=== PATIENT | female | born 1985 | race Caucasian/White ===

== ENCOUNTER 2017-03-08 08:48 | Inpatient (IN) ==
--- NOTE | 2017-03-08 09:41 | OB/GYN History & Physical ---
Date of Encounter: 03/08/17 Time of Encounter: 09:35 Assessment and Plan (1) 36 weeks gestation of Current visit: Yes Status: Acute Admit for delivery (2) Spontaneous rupture of membranes Current visit: Yes Status: Acute + Nitrazine, grossly ruptured on exam clear fluid GBS status unknown will treat per protocol. History of Present Illness Chief complaint: Spontaneous rupture of membranes HPI: Ms. Gómez is a 32 year old female at 36w6d presents to labor and delivery with c/o rupture of membranes at 2330 on 03/07/2017. Patient reports irregular contractions and bloody show. Patient had GBS culture collected at last appointment however will not be resulted out until tomorrow. Patient reports allergy to PCN as a baby and is going to contact mother for reaction. Blood type A+, Rubella: Immune, Hep B: nonreactive. Past Med Surg Social Fam HX - Past Medical History Source: patient Medical history: no medical history Psychiatric history: no psych history - Past Surgical History Surgical History: other (T&A, [place] teeth and nasal surgery) - Social History Alcohol use: none Drug use: none Current living situation: Home - Independent Activity Level: Independent ambulation Recent Out of Country Travel Within the Last 8 Weeks: No Exposure or Possible Exposure to Illness During Travel: No Obstetrical History - Pregnancies : 3 Para: 2 Term: 1 : 1 Ab's: 0 Livin - History/Complications History/Complications: History of PIH with prior pregnancies Review of System OB - Constitutional Constitutional ROS IM: no chills, no fever(s), no headache(s) - Cardiovascular Cardiovascular: rapid heart rate, no chest pain, no dyspnea, no edema, no palpitations, no syncope - Respiratory Respiratory: no cough - Gastrointestinal Gastrointestinal: no abdominal pain, no diarrhea, no heartburn, no nausea, no vomiting - Genitourinary Genitourinary: no abnormal vaginal bleeding, no difficulty urinating, no dysuria , no flank pain, no urinary frequency, no urinary urgency, no vaginal odor Exam - Constitutional Constitutional: well developed, well nourished, no acute distress, average body habitus - HEENT HEENT: Normocephaly, Mucus Membranes Moist - Neck Neck exam: normal inspection, supple - Lungs Respiratory exam: CTAB - Cardiovascular Cardiovascular exam: RRR, +S1, +S2 - Abdomen Abdomen: Present: bowel sounds normal, gravid, non tender - Extremities Extremities exam: full ROM, normal capillary refill, normal inspection Deep Tendon Reflex Grade: 2+ Normal - Cervix Dilation: 3 (per RN) Effacement: 80 Station: -1 - Uterus Uterus exam: Present: normal size, normal contour - Anus/Rectum Anus/Rectum: Present: normal perianal skin - Comments Comments: FHR 135 bpm moderate variability +15x15 accels no decels noted. Contractions irregular. Cat. 1 tracing. Results All other labs normal.
[2017-03-08] MEDS ORDERED: Ondansetron 4 MG/2 ML VIAL IVP PRN ×2 (09:50→18:34)
[2017-03-08] MEDS ORDERED: Famotidine 20 MG/2 ML VIAL IVP PRN (09:50)
[2017-03-08] MEDS ORDERED: Naloxone 0.4 MG/ML INJ IVP PRN (09:50)
[2017-03-08] MEDS ORDERED: Ringers Solution, Lactated 1,000 ML IVC SCH (10:00)
[2017-03-08 10:01] LABS: Basophils % 0.3 %; Eosinophils % 0.1 %; Hematocrit 35.3 % (35.3-44.9); Hemoglobin 11.6 g/dL (11.5-15.4); Immature Granulocytes % 1.5 % (0-4); Lymphocytes # 1.4 K/mcL (0.6-4.6); Lymphocytes % 9.4 %; Mean Corpuscular HGB Conc 32.9 g/dL (31.6-35.5); Mean Corpuscular Hemoglobin 27.8 pg (28.0-33.3); Mean Corpuscular Volume 84.7 fL (83.0-100.0); Mean Platelet Volume 10.6 fL (9.4-12.4); Monocytes # 0.9 K/mcL (0.0-1.3); Neutrophils # 11.9 K/mcL (1.6-8.9); Platelet Count 301 K/mcL (140-400); Red Blood Count 4.17 M/mcL (3.82-4.97); Segmented Neutrophils % 82.7 %
[2017-03-08 10:18] LABS: Alanine Aminotransferase 16 Units/L (0-55); Aspartate Amino Transferase 18 Units/L (5-34); BUN/Creatinine Ratio 11 (6-26); Blood Urea Nitrogen 7 mg/dL (7-20); Lactate Dehydrogenase 223 Units/L (159-327); Uric Acid 3.6 mg/dL (2.6-6.0); eGFR For African Americans > 60 (> 60); eGFR For Non-African Americans > 60 (> 60)
[2017-03-08] MEDS ORDERED: Clindamycin 900 MG/50 ML 900 MG/50 ML IV.SOLN IVPB SCH ×2 (11:30→16:00)
[2017-03-08] MEDS ORDERED: *HR* Nalbuphine 20 MG/ML AMPUL IVP PRN (12:25)
--- NOTE | 2017-03-08 12:28 | OB Labor Progress Note ---
Date of Encounter: 03/08/17 Time of Encounter: 12:26 Labor Progress Note - Subjective Subjective: Patient reports contractions are getting stronger. Patient reports she is ready for Nubain at this time. - Cervix Cervix: 5.5/80/-1 - Heart Tones Heart Tones: 130 bpm moderate variability +15x15 accels no decels noted. - [place]: 3-4 min apart - Interventions Interventions: SVE - Plan Plan: Nubain and Epidural for pain management when desired Continue labor management-
[2017-03-08] MEDS ORDERED: *HR* Nalbuphine 20 MG/ML AMPUL ONE (12:30)
[2017-03-08] MEDS ORDERED: Epidural Premix (fent/bupiv) 110 ML EP ONE (13:15)
[2017-03-08] MEDS ORDERED: *HR* FentaNYL (PF) 100 MCG/2 ML VIAL ONE (13:15)
[2017-03-08] MEDS ORDERED: Bupivacaine-MPF 0.25% 10 ML VIAL ONE (13:15)
--- NOTE | 2017-03-08 13:51 | Anesthesia Evaluation PreOp ---
Date of Encounter: 03/08/17 Time of Encounter: 13:49 - Past History Planned Operation: SAPNA Cardiac History: Denies any Significant Hx Pulmonary History: Denies Any Significant HX PREP PERSON History: Denies Any Significant HX Other Medical History: Denies Any Significant HX Anesthesia History: No Prior Anesthetic Complications (previous SAPNA x 2; denies personal and family h/o complications w/ GA or NA) : Yes Test: Positive Alcohol Use: none Drug use: none Medications and Allergies Pepcid 1 / PO Q12-24H PRN 03/08/17 [History] Pnv95/Ferrous Fumarate/FA [ Vitamin Tablet] 1 each PO DAILY 03/08/17 [ History] Allergies Penicillins Allergy (Verified 03/08/17 09:52) Anaphylaxis - Meds/Allergy Pre-op Review Medications Reviewed: Yes Allergies Reviewed: Yes Beta Blockers on Current Med List: No Anesthesia Results - Labs 03/08/17 09:52 03/08/17 09:52 Anesthesia Exam O2 Sat Height 1.73 m Height 1.73 m Weight 69 kg Weight 69.5 kg O2 Sat by Pulse Oximetry 99 Vital Signs Temp Pulse Resp BP Pulse Ox 98.1 F 96 16 131/87 99 03/08/17 10:12 03/08/17 10:12 03/08/17 10:12 03/08/17 10:12 03/08/17 10:12 NPO (# of Hours): solids > 7 hours Pain Scale: 6 Pain Scale Used: Numeric (1 - 10) - HEENT Pupil (Motor): Pupils equal Mallampati: II Teeth: Normal Oral Opening: Greater than 3 - PREP PERSON LOC: Oriented PREP PERSON Motor: Normal RUE, Normal LUE, Normal RLE, Normal LLE, Normal Face PREP PERSON Sensory: Normal: RUE, LUE, RLE, LLE, Face - Cardiac Rhythm: Regular Murmur: None - Pulmonary Breath Sounds: bilateral Clear Respiratory Effort: Symmetrical Anesthesia Assess/Plan ASA Score: 2 Modified [place] Scale for Level of Consciousness: Anixous, agitated or restless Anesthetic Plan: Regional Autologous Blood: No Monitoring Plan: Standard Monitors Recovery Plan: Other
[2017-03-08] MEDS ORDERED: *HR* FentaNYL (PF) 100 MCG/2 ML VIAL EP ONE (13:53)
[2017-03-08] MEDS ORDERED: Bupivacaine-MPF 0.25% 10 ML VIAL EP ONE (13:53)
--- NOTE | 2017-03-08 13:53 | Anesthesia Procedures ---
Date of Encounter: 03/08/17 Time of Encounter: 13:19 Procedures: Anesthesia - Epidural/Spinal Patient ID/Chart reviewed: Yes Patient examined: Yes OB Eval: Gestational age: 36 weeks 6 days OB Eval: : 3 OB Eval: Hx Para: 2 OB Eval: Dilated at (cm): 7 OB Eval: Contractions: Non-stressed pattern Consent Obtained: Yes Supplemental Oxygen: None/Room Air Site Prep: Aseptic Technique, Sterile prep and drape, Povidone-Iodine 1% Patient position: upright Local Anesthetic: Lidocaine 1% Amount of Local Anesthetic used: 3 Touhy Needle Gauge: 18 Touhy Needle Depth (cm): 4 Catheter Depth at Skin (cm): 9 Test Dose (1.5% Lido + Epi): Volume given (mls): 6 (given in 2 equally divided doses over a period of 5 min) Test Dose Result: Negative Loading Dose Administered: Thru Catheter Infusion Med: 0.125% Bupivacaine w/ 2 mcg/ml Fentanyl Infusion Rate (mls/hr): [address]: Tegaderm, Tape Interspace Used: L3-L4 Loss of Resistance (EMILY): Yes Blood: No CSF: No Paresthesia: No
[2017-03-08] MEDS ORDERED: Epidural Premix (fent/bupiv) 110 ML EP SCH (14:00)
[2017-03-08] MEDS ORDERED: Oxytocin 20 units/ LR 1000 mL 20 UNIT/1,000 ML BAG IVC ONE (15:18)
--- NOTE | 2017-03-08 15:57 | OB/GYN Procedure Note ---
Delivery - Delivery Date: 03/08/17 Provider: Bianca Fields Intrapartum events: none Delivery induction: none Delivery monitor: external FHT, external uterine Anesthesia: epidural Estimated Blood Loss: 200 - Infant (s) Infant A Delivery Date: 03/08/17 Infant Delivery Time: 15:15 Presentation: vertex Position: TORREY Route of delivery: Gender: Male Viability: Viable Pounds: 6 Ounces: 7 Weight Gram: 2.925 kg at 1 minute: 8 at 5 mins: 9 Shoulder Dystocia: not encountered Placenta: spontaneous Cord: 3 umbilical vessels - Repair Episiotomy: none Laceration Description: None - Complications Delivery complications: none - Disposition Mom disposition: stable in LDR Christoval disposition: stable in LDR - Comments Comments: Patient progressed to complete dilatation and spontaneous vaginal delivery of viable male infant. scores were 8 and 9 at 1 and 5 minutes respectively, and the weighed 6 lbs. 7 oz. Placenta delivered spontaneously and appeared to be intact. No lacerations were noted, no episiotomy was performed. All sponge needle and is counts reported as correct. Blood loss 200 mL no shoulder dystocia was encountered, no nuchal cord was present.
[2017-03-08] MEDS ORDERED: Ibuprofen 600 MG TABLET PO PRN (17:09)
[2017-03-08] MEDS ORDERED: Acetaminophen 325 MG TABLET PO PRN (17:09)
[2017-03-08] MEDS ORDERED: Oxytocin 20 units/ LR 1000 mL 20 UNIT/1,000 ML BAG IVC SCH (17:09)
[2017-03-09 06:30] LABS: Basophils % 0.3 %; Eosinophils # 0.1 K/mcL (0.0-0.6); Eosinophils % 0.6 %; Hematocrit 33.6 % (35.3-44.9); Hemoglobin 10.8 g/dL (11.5-15.4); Immature Granulocytes % 1.9 % (0-4); Immature Platelets 4.7 % (1.1-6.1); Lymphocytes # 1.8 K/mcL (0.6-4.6); Lymphocytes % 13.3 %; Mean Corpuscular HGB Conc 32.1 g/dL (31.6-35.5); Mean Corpuscular Hemoglobin 27.5 pg (28.0-33.3); Mean Corpuscular Volume 85.5 fL (83.0-100.0); Mean Platelet Volume 10.6 fL (9.4-12.4); Monocytes % 7.1 %; Neutrophils # 10.3 K/mcL (1.6-8.9); Platelet Count 278 K/mcL (140-400); Red Blood Count 3.93 M/mcL (3.82-4.97); Segmented Neutrophils % 76.8 %
[2017-03-09] MEDS ORDERED: *HR* FentaNYL (PF) 100 MCG/2 ML VIAL ONE (07:42)
[2017-03-09] MEDS ORDERED: *HR* Propofol 200 MG/20 ML VIAL IVP ONE (07:42)
[2017-03-09] MEDS ORDERED: *HR* Midazolam HCl 2 MG/2 ML VIAL ONE (07:42)
[2017-03-09] MEDS ORDERED: Dexamethasone 4 MG/ML VIAL ONE (07:43)
[2017-03-09] MEDS ORDERED: Ondansetron 4 MG/2 ML VIAL ONE (07:43)
[2017-03-09] MEDS ORDERED: Lidocaine -MPF 2% 5 ML VIAL ONE (07:43)
[2017-03-09] MEDS ORDERED: *HR* Succinylcholine 200 MG/10 ML VIAL IVP ONE (07:46)
[2017-03-09] MEDS ORDERED: Ringers Solution, Lactated 1,000 ML ONE (07:58)
--- NOTE | 2017-03-09 08:01 | OB/GYN Progress Note ---
Date of Encounter: 03/09/17 Time of Encounter: 07:40 - Assessment and Plan (1) Normal vaginal delivery Current Visit: Yes Status: Acute (2) Encounter for sterilization Current Visit: Yes Status: Acute Risks, benefits and alternatives discussed with the patient at length and informed consent obtained. Anesthesia at bedside to consent. Subjective - Subjective Principal diagnosis: s/p vaginal delivery yesterday.Desire permanent sterilization today Patient reports: appetite normal, pain well controlled, ambulating normally : doing well Objective - Latest Vital Signs Latest vital signs: Vital Signs Temp Pulse Resp BP Pulse Ox 03/09/17 03:48 98.0 F 73 16 117/74 98 03/08/17 19:33 98.0 F 79 16 130/82 98 03/08/17 18:30 98 F 76 16 120/87 98 03/08/17 17:30 98.1 F 70 14 130/84 98 03/08/17 17:15 98.3 F 76 16 135/90 98 03/08/17 17:00 98.5 F 85 16 136/79 99 03/08/17 10:12 98.1 F 96 16 131/87 99 Intake and Output 03/08/17 03/08/17 03/09/17 15:59 23:59 07:59 Intake Total 600 / 600 0 / 0 Output Total 600 / 600 1600 / 1600 Balance 0 / 0 -1600 / -1600 Intake: Oral 600 / 600 0 / 0 Output: Urine 600 / 600 1600 / 1600 Other: # Voids 1 Weight 69 kg 67.2 kg 65.4 kg Patient Weight 03/09/17 23:59 Weight 65.4 kg - Exam Lungs: bilateral: normal Chest: Normal S1, Normal S2 Extremities: Present: normal Abdomen: Present: normal appearance, soft Uterus: Present: normal, firm. Absent: tenderness Uterus Position: 1 Finger Below Umbilicus - Labs Labs: Laboratory Results - last 24 hr 03/08/17 03/08/17 03/09/17 09:52 09:52 06:00 WBC 14.4 H 13.4 H RBC 4.17 3.93 Hgb 11.6 10.8 L Hct 35.3 33.6 L MCV 84.7 85.5 MCH 27.8 L 27.5 L MCHC 32.9 32.1 RDW 13.0 13.0 Plt Count 301 278 MPV 10.6 10.6 Immature Gran % 1.5 1.9 Seg Neutrophils % 82.7 76.8 Lymphocytes % 9.4 13.3 Monocytes % 6.0 7.1 Eosinophils % 0.1 0.6 Basophils % 0.3 0.3 Neutrophils # 11.9 H 10.3 H Lymphocytes # 1.4 1.8 Monocytes # 0.9 1.0 Eosinophils # 0.0 0.1 Basophils # 0.0 0.0 Immature Plt Fraction 4.7 BUN 7 Creatinine 0.63 Est GFR ( Amer) > 60 Est GFR (Non-Af Amer) > 60 BUN/Creatinine Ratio 11 Uric Acid 3.6 AST 18 ALT 16 Lactate Dehydrogenase 223
[2017-03-09] MEDS ORDERED: *HR* Promethazine 25 MG/ML VIAL IVP PRN (08:07)
[2017-03-09] MEDS ORDERED: *HR* HYDROmorphone (PF) 1 MG/ML SYRINGE IVP PRN (08:07)
[2017-03-09] MEDS ORDERED: *HR* Labetalol 100 MG/20 ML MDV IVP PRN (08:07)
--- NOTE | 2017-03-09 08:07 | Anesthesia Evaluation PreOp ---
Date of Encounter: 03/09/17 Time of Encounter: 07:40 - Past History Planned Operation: BPS Cardiac History: Denies any Significant Hx Pulmonary History: Denies Any Significant HX CHEMICAL DEPENDENCY COUNSELOR History: Denies Any Significant HX Other Medical History: Denies Any Significant HX Anesthesia History: No Prior Anesthetic Complications, Past Anesthesia (T&A, wisdom teeth, nasal surgery) Alcohol Use: none Drug use: none Medications and Allergies Pepcid 1 / PO Q12-24H PRN 03/08/17 [History] Pnv95/Ferrous Fumarate/FA [ Vitamin Tablet] 1 each PO DAILY 03/08/17 [ History] Allergies Penicillins Allergy (Verified 03/08/17 09:52) Anaphylaxis - Meds/Allergy Pre-op Review Medications Reviewed: Yes Allergies Reviewed: Yes Beta Blockers on Current Med List: No Anesthesia Results - Labs 03/09/17 06:00 03/08/17 09:52 Anesthesia Exam Vital Signs Temp Pulse Resp BP Pulse Ox 03/09/17 03:48 98.0 F 73 16 117/74 98 03/08/17 19:33 98.0 F 79 16 130/82 98 03/08/17 18:30 98 F 76 16 120/87 98 03/08/17 17:30 98.1 F 70 14 130/84 98 03/08/17 17:15 98.3 F 76 16 135/90 98 03/08/17 17:00 98.5 F 85 16 136/79 99 03/08/17 10:12 98.1 F 96 16 131/87 99 Intake and Output 03/08/17 03/09/17 03/09/17 23:59 07:59 15:59 Intake Total 600 / 600 0 / 0 Output Total 600 / 600 1600 / 1600 Balance 0 / 0 -1600 / -1600 Intake: Oral 600 / 600 0 / 0 Output: Urine 600 / 600 1600 / 1600 Other: # Voids 1 Weight 67.2 kg 65.4 kg Patient Weight 03/09/17 23:59 Weight 65.4 kg Height: 5'8" Weight: 144# NPO (# of Hours): BMI = 22 - HEENT Pupil (Motor): Pupils equal, EOMI Mallampati: I Teeth: Normal Oral Opening: Greater than 3 - CHEMICAL DEPENDENCY COUNSELOR LOC: Oriented CHEMICAL DEPENDENCY COUNSELOR Motor: Normal RUE, Normal LUE, Normal RLE, Normal LLE, Normal Face CHEMICAL DEPENDENCY COUNSELOR Sensory: Normal: RUE, LUE, RLE, LLE, Face - Cardiac Rhythm: Regular Murmur: None - Pulmonary Breath Sounds: bilateral Clear Respiratory Effort: Symmetrical Anesthesia Assess/Plan ASA Score: 1 Modified [place] Scale for Level of Consciousness: Cooperative, oriented, and tranquil Anesthetic Plan: General Monitoring Plan: Standard Monitors Recovery Plan: PACU Anes Supervising Prov Stmt: Pt seen/evaluated, R&B discussed, questions answered and consent obtained - MD Laurie
[2017-03-09] MEDS ORDERED: Acetaminophen IV 1,000 MG/100 ML INFUS..BTL IVPB ONE (08:08)
[2017-03-09] MEDS ORDERED: *HR* Labetalol 20 MG/4 ML SYRINGE IVP PRN (08:14)
[2017-03-09] MEDS ORDERED: Ketorolac 30 MG/ML VIAL ONE (08:54)
[2017-03-09] MEDS ORDERED: Prenatal Vit/FA 1 EACH TABLET PO SCH (09:00)
--- NOTE | 2017-03-09 09:14 | OB/GYN Procedure Note ---
OB-ELECTRO OPTICS ENGINEER: Procedure - Diagnosis Date of procedure: 03/09/17 Pre-op diagnosis: undesired fertility Post-op diagnosis: same - Procedure Procedure: bilateral partial salpingectomy Surgeon: Yomaira Tinajero Anesthesia provider: Reyes Hare Anesthesia Type: General Estimated blood loss (cc): 20 Fluids: crystalloid Procedure Complications: none Specimens collected: bilateral tubal segments Disposition: other ( recovery) Narrative: Patient was taken operative suite and placed under general she without difficulty. Timeout was then performed. Antibiotics are not indicated. SCDs are on and active. An infraumbilical incision is then made and carried through to the underlying layer fascia the fascia was then tented up and entered sharply with the Metzenbaum scissors. The peritoneum is then entered bluntly. The left tube is identified and followed to the fimbriated end. A knuckle of tube in the midportion is then double suture ligated using 0 plain gut and transected. The proximal portion escaped the suture. The proximal portion was grasped and suture ligated with 4-0 vicryl. Hemostasis is assured and the tube was returned to the abdomen. The right tube was then grasped and followed to the fimbriated end. A knuckle of tube in the midportion is then double suture ligated using 0 plain gut and transected. Hemostasis is assured and the tube was returned to the abdomen. The fascia was then closed using 0 Vicryl in a running fashion. The skin is reapproximated using 4-0 Vicryl. Sterile dressing is then applied. Patient tolerated the procedure well. She is extubated and taken to recovery in stable condition.
[2017-03-09] MEDS ORDERED: Acetaminophen 325 MG TABLET PO PRN (09:50)
[2017-03-09] MEDS ORDERED: Ibuprofen 600 MG TABLET PO PRN (09:50)
[2017-03-09] MEDS: *HR* OxyCODONE/APAP 5/325 TABLET PO PRN ×2 (10:06→13:59)
[2017-03-09 11:46] VITALS: BP 118/77
--- NOTE | 2017-03-09 17:12 | Discharge Summary ---
Date of Encounter: 03/09/17 Time of Encounter: 17:10 - Discharge Diagnosis (1) Encounter for sterilization Priority: Secondary Status: Acute (2) Normal vaginal delivery Priority: Primary Status: Acute Comments: Patient states feel well. Meeting all post milestones. Desires discharge - Discharge Medications Prescriptions: OxyCODONE/APAP 5/325 [Percocet 5/325 MG] 1 each PO Q4HR PRN #20 tablet PRN Reason: Moderate Pain Ibuprofen [Motrin] 600 mg PO Q6HR PRN #60 tablet PRN Reason: Cramping Docusate [Colace] 100 mg PO BID #60 capsule Ferrous Sulfate 325 mg PO DAILY #60 tablet Home Medications: Pepcid 1 / PO Q12-24H PRN 03/08/17 [History] Pnv95/Ferrous Fumarate/FA [ Vitamin Tablet] 1 each PO DAILY 03/08/17 [ History] Acetaminophen [Tylenol] 650 mg PO Q6HR PRN #0 tablet 03/09/17 [Rx] Docusate [Colace] 100 mg PO BID #60 capsule 03/09/17 [Rx] Ferrous Sulfate 325 mg PO DAILY #60 tablet 03/09/17 [Rx] Ibuprofen [Motrin] 600 mg PO Q6HR PRN #60 tablet 03/09/17 [Rx] OxyCODONE/APAP 5/325 [Percocet 5/325 MG] 1 each PO Q4HR PRN #20 tablet 03/09/17 [Rx] Allergies/Adverse Reactions: Allergies Penicillins Allergy (Verified 03/08/17 09:52) Anaphylaxis Data Procedures and tests throughout hospitalization: Laboratory Tests 03/08/17 03/08/17 03/09/17 09:52 09:52 06:00 WBC 14.4 H 13.4 H RBC 4.17 3.93 Hgb 11.6 10.8 L Hct 35.3 33.6 L MCV 84.7 85.5 MCH 27.8 L 27.5 L MCHC 32.9 32.1 RDW 13.0 13.0 Plt Count 301 278 MPV 10.6 10.6 Immature Gran % 1.5 1.9 Seg Neutrophils % 82.7 76.8 Lymphocytes % 9.4 13.3 Monocytes % 6.0 7.1 Eosinophils % 0.1 0.6 Basophils % 0.3 0.3 Neutrophils # 11.9 H 10.3 H Lymphocytes # 1.4 1.8 Monocytes # 0.9 1.0 Eosinophils # 0.0 0.1 Basophils # 0.0 0.0 Immature Plt Fraction 4.7 BUN 7 Creatinine 0.63 Est GFR ( Amer) > 60 Est GFR (Non-Af Amer) > 60 BUN/Creatinine Ratio 11 Uric Acid 3.6 AST 18 ALT 16 Lactate Dehydrogenase 223 Labs on day of discharge: Labs from last 24 hours 03/09/17 06:00 WBC 13.4 H RBC 3.93 Hgb 10.8 L Hct 33.6 L MCV 85.5 MCH 27.5 L MCHC 32.1 RDW 13.0 Plt Count 278 MPV 10.6 Immature Gran % 1.9 Seg Neutrophils % 76.8 Lymphocytes % 13.3 Monocytes % 7.1 Eosinophils % 0.6 Basophils % 0.3 Neutrophils # 10.3 H Lymphocytes # 1.8 Monocytes # 1.0 Eosinophils # 0.1 Basophils # 0.0 Immature Plt Fraction 4.7 - Impressions ITS Impressions KUB X-Ray 03/09/17 08:55 IMPRESSION: 1. No radiopaque foreign body to suggest a retained surgical instrument. 2. Air-filled loops of both large and small bowel in a nonspecific pattern. D/ / Reyes Michelle MD / Reyes Michelle MD Interpreting Provider: Reyes Michelle MD Date of admission: 03/08/17 08:48 Primary care physician: Libby Dalal Consults: 03/08/17 17:09 Consult to Front Desk Manager [CONS] Routine Comment: Vaginal delivery, consult needed Discharging clinician: Delmi Quiñones Anticipated date of discharge: 03/09/17 - Patient Status Disposition: Home, Self-Care Condition: Good Functional capacity at discharge: independent ambulation Overall status at discharge: patient is back to baseline - Discharge Instructions Follow Up With: Libby Dalal MD [Primary Care Provider] - Romana Davis MD [Partnered Physician] - - Diet and Activity Activity: resume usual activities as tolerated Diet: regular diet Hospital Course Reason for admission: IUP at term Delivery: Episiotomy: none Laceration: none Other procedures: tubal ligation complications: none Discharge diagnosis: IUP at term delivered Gordon baby: male Hospital course: Delivery - Delivery Date: 03/08/17 Provider: Bianca Fields Intrapartum events: none Delivery induction: none Delivery monitor: external FHT, external uterine Anesthesia: epidural Estimated Blood Loss: 200 - (s) A Delivery Date: 03/08/17 Delivery Time: 15:15 Presentation: vertex Position: TORREY Route of delivery: Gender: Male Viability: Viable Pounds: 6 Ounces: 7 Weight Gram: 2.925 kg at 1 minute: 8 at 5 mins: 9 Shoulder Dystocia: not encountered Placenta: spontaneous Cord: 3 umbilical vessels - Repair Episiotomy: none Laceration Description: None - Complications Delivery complications: none - Disposition Mom disposition: stable in LDR Gordon disposition: stable in LDR - Comments Comments: Patient progressed to complete dilatation and spontaneous vaginal delivery of viable male . scores were 8 and 9 at 1 and 5 minutes respectively, and the weighed 6 lbs. 7 oz. Placenta delivered spontaneously and appeared to be intact. No lacerations were noted, no episiotomy was performed. All sponge needle and is counts reported as correct. Blood loss 200 mL no shoulder dystocia was encountered, no nuchal cord was present. Time Attestation: Total time spent providing and/or coordinating discharge services: Exam - Constitutional Vitals: Temp Pulse Resp BP Pulse Ox 98.3 F 74 16 118/77 98 03/09/17 11:43 03/09/17 11:43 03/09/17 16:00 03/09/17 11:43 03/09/17 09:45 General appearance IM: A&O X 3 - Respiratory Respiratory exam: Present: CTAB - Cardiovascular Cardiovascular exam IM: Present: RRR, +S1, +S2 - GI/Abdominal GI/Abdominal exam IM: normal bowel sounds, soft Incision: normal - Uterus Position: At Umbilicus, Midline - Extremities Exam Extremities exam IM: Present: normal capillary refill, normal inspection - Neurological Exam Neurological exam: normal gait, oriented X3 - Psychiatric Additional comments: mood is good
== END 2017-03-09 19:00 | disposition home or self-care (01) | DRG 541 ==
LOC: 1NENULAB → OBSVTOIN 08:48 → 1NENUOBS 18:35

== ENCOUNTER 2020-08-16 15:26 | Observation (INO) ==
[2020-08-16] MEDS ORDERED: 0.9 % Sodium Chloride 1,000 ML IVC ONE (15:41)
[2020-08-16] MEDS ORDERED: Ondansetron 4 MG/2 ML VIAL IVP ONE (15:46)
[2020-08-16 16:09] LABS: Amorphous Sediment,Urine Few per hpf (None-Few); Bilirubin,Urine Negative (Negative); Blood,Urine Negative (Negative); Clarity,Urine Ex.Turbid (Clear); Color,Urine Yellow (Yellow); Glucose,Urine (UA) Normal (Normal); Ketones,Urine Negative (Negative); Leukocyte Esterase,Urine Negative (Negative); Mucus,Urine Few per lpf (None-Few); Nitrite,Urine Negative (Negative); PH,Urine 7.5 pH Units (5.0-8.0); Protein,Urine Trace mg/dL (Neg-Trace); RBC,Urine 0-3 per hpf (0-3); Specific Gravity,Urine 1.024 (1.010-1.025); Squamous Epithelial Cell,Urine Moderate per hpf (None-Few); Urobilinogen,Urine Normal (Normal)
[2020-08-16 16:19] LABS: Amphetamine Screen,Urine Negative ng/mL (Cutoff=1000); Barbiturate Screen,Urine Negative ng/mL (Cutoff=200); Benzodiazepines Screen,Urine Positive ng/mL (Cutoff=200); Cannabinoid Screen,Urine Positive ng/mL (Cutoff = 50); Cocaine Screen,Urine Negative ng/mL (Cutoff= 300); Opiate Screen,Urine Negative ng/mL (Cutoff=300); Phencyclidine Screen,Urine Negative ng/mL (Cutoff=25)
[2020-08-16 16:24] LABS: Basophils % 0.2 %; Eosinophils # 0.1 K/mcL (0.0-0.6); Eosinophils % 1.3 %; Hematocrit 43.7 % (35.3-44.9); Hemoglobin 13.9 g/dL (11.5-15.4); Immature Granulocytes % 0.4 % (0-4); Lymphocytes # 2.1 K/mcL (0.6-4.6); Lymphocytes % 26.1 %; Mean Corpuscular HGB Conc 31.8 g/dL (31.6-35.5); Mean Corpuscular Hemoglobin 29.3 pg (28.0-33.3); Mean Platelet Volume 10.3 fL (9.4-12.4); Monocytes # 0.6 K/mcL (0.0-1.3); Monocytes % 7.6 %; Neutrophils # 5.3 K/mcL (1.6-8.9); Platelet Count 271 K/mcL (140-400); Red Blood Count 4.75 M/mcL (3.82-4.97); Red Cell Distribution Width 12.9 % (11.5-14.5); Segmented Neutrophils % 64.4 %; White Blood Count 8.2 K/mcL (4.3-11.1)
[2020-08-16 16:43] LABS: Acetaminophen < 10 mcg/mL (10-20); BUN/Creatinine Ratio 14 (6-26); Blood Urea Nitrogen 10 mg/dL (6-20); Calcium 8.5 mg/dL (8.6-10.3); Carbon Dioxide 30 mEq/L (23-29); Chloride 106 mEq/L (98-107); Ethanol < 10 mg/dL (Less than 10); Glucose 82 mg/dL (70-105); Osmolality,Calculated 288 (280-300); Potassium 3.3 mEq/L (3.5-5.1); Salicylate < 2.5 mg/dL (15.0-30.0); Sodium 140 mEq/L (136-145); eGFR For African Americans > 60 (> 60); eGFR For Non-African Americans > 60 (> 60)
[2020-08-16] MEDS ORDERED: Naloxone 0.4 MG/ML INJ IVP PRN (17:00)
[2020-08-16] MEDS ORDERED: Ondansetron 4 MG/2 ML VIAL IVP PRN (17:00)
[2020-08-16] MEDS: 0.9 % Sodium Chloride 1,000 ML IVC SCH (20:20)
[2020-08-17 02:12] LABS: Basophils % 0.2 %; Eosinophils # 0.2 K/mcL (0.0-0.6); Eosinophils % 2.1 %; Hemoglobin 13.4 g/dL (11.5-15.4); Immature Granulocytes % 0.2 % (0-4); Lymphocytes # 2.4 K/mcL (0.6-4.6); Lymphocytes % 28.7 %; Mean Corpuscular HGB Conc 32.7 g/dL (31.6-35.5); Mean Corpuscular Hemoglobin 30.2 pg (28.0-33.3); Mean Corpuscular Volume 92.6 fL (83.0-100.0); Monocytes # 0.8 K/mcL (0.0-1.3); Monocytes % 9.7 %; Platelet Count 246 K/mcL (140-400); Red Blood Count 4.43 M/mcL (3.82-4.97); Segmented Neutrophils % 59.1 %; White Blood Count 8.5 K/mcL (4.3-11.1)
[2020-08-17 02:33] LABS: Alanine Aminotransferase 9 Units/L (7-52); Albumin 3.7 g/dL (3.5-5.7); Albumin/Globulin Ratio 1.9 (1.1-2.2); Alkaline Phosphatase 52 Units/L (34-104); Aspartate Amino Transferase 13 Units/L (13-39); BUN/Creatinine Ratio 7 (6-26); Bilirubin,Total 0.5 mg/dL (0.3-1.0); Blood Urea Nitrogen 5 mg/dL (6-20); Calcium 7.8 mg/dL (8.6-10.3); Carbon Dioxide 27 mEq/L (23-29); Chloride 111 mEq/L (98-107); Glucose 96 mg/dL (70-105); Magnesium 1.8 mg/dL (1.6-2.6); Osmolality,Calculated 285 (280-300); Sodium 139 mEq/L (136-145); Total Protein 5.7 g/dL (6.4-8.9); eGFR For African Americans > 60 (> 60); eGFR For Non-African Americans > 60 (> 60)
[2020-08-17] MEDS: 0.9 % Sodium Chloride 1,000 ML IVC SCH (07:08)
[2020-08-17 12:04] VITALS: BP 120/79
== END 2020-08-17 15:25 ==
LOC: EMEROOARM 15:26 → 3BNU 15:26 → SUATTDRO 17:24 → 3BNU 17:38
PROVIDERS: ADMIT Internal Medicine; ATTEND Internal Medicine

== ENCOUNTER 2020-08-17 15:20 | Observation (INO) ==
[2020-08-17] MEDS ORDERED: *HR* LORazepam 1 MG TABLET PO PRN (15:27)
[2020-08-17] MEDS ORDERED: traZODone 50 MG TABLET PO PRN (15:27)
[2020-08-17] MEDS ORDERED: *HR* LORazepam 2 MG/ML VIAL IM PRN (15:27)
[2020-08-17] MEDS ORDERED: Acetaminophen 325 MG TABLET PO PRN (15:27)
[2020-08-17] MEDS ORDERED: Mag Hydrox/Al Hydrox/Simeth 30 ML UDC PO PRN (15:27)
[2020-08-17] MEDS ORDERED: haloperidoL 5 MG TABLET PO PRN (15:27)
[2020-08-17] MEDS ORDERED: MOM Conc 10 ML UD.LIQ PO PRN (15:27)
[2020-08-17] MEDS ORDERED: hydrOXYzine pamoate 25 MG CAPSULE PO PRN (15:27)
[2020-08-17] MEDS ORDERED: Haloperidol Lactate 5 MG/ML VIAL IM PRN (15:27)
[2020-08-18 09:23] VITALS: BP 134/90
[2020-08-18] MEDS ORDERED: Mirtazapine 15 MG TABLET PO SCH (21:00)
== END 2020-08-18 13:20 | disposition home or self-care (01) ==
LOC: 1ANU 15:20 → INTOOBSV 15:20
PROVIDERS: ADMIT Psychiatry & Neurology Psychiatry; ATTEND Psychiatry & Neurology Psychiatry